=== PATIENT | female | born 1940 | race Caucasian/White ===

== ENCOUNTER 2024-10-10 09:13 | Outpatient (OUT) | payer MEDICARE, SELFPAY ==
--- OUTSIDE RECORDS SUMMARY | 2024-10-10 09:20 | XMS_ITS | Encounter Summary ---
Author Organization [facility] Address [address] [place] [address] Phone Care Team Providers Care Pulling Unit Operator Name Role Phone Farhad Johnson DO Primary Care Provider + Encounter Details Date Type Department Care Team (Late st Contact Info) Description 10/13/2022 Scanned Document [facility] [address] [place] [id number] Scanning, Generic Provider Social History Tobacco Use Types Packs/Day Years Used Date Smoking Tobacco: Never Assessed Comments Unknown Sex and Gender Information Value Date Recorded Sex Assigned at Not on file Legal Sex Female 8:27 PM EST Gender Identity Not on file Sexual Orientation Not on file documented as of this encounter Plan of Treatment Scheduled Orders Name Type Priority Associated Diagnoses Orde r Schedule Ultrasound- OnBase Scan Imaging O rdered: 10/13/2022 documented as of this encounter Visit Diagnoses Not on filedocumented in this encounter Care Teams Pulling Unit Operator Relationship Specialty Start Date End Date Farhad Johnson DO [address] [place] [address] PCP - General Family Medicine 03/04/23 documented as of this encounter
--- OUTSIDE RECORDS SUMMARY | 2024-10-10 09:20 | XMS_ITS | Encounter Summary ---
Author Organization [facility] Address [address] [place] [address] Phone Care Team Providers Care Blower Insulator Name Role Phone Farhad Johnson DO Primary Care Provider + Encounter Details Date Type Department Care Team (Late st Contact Info) Description 10/12/2022 Scanned Document [facility] [address] [place] [id number] Scanning, Generic Provider Social History Tobacco Use Types Packs/Day Years Used Date Smoking Tobacco: Never Assessed Comments Unknown Sex and Gender Information Value Date Recorded Sex Assigned at Not on file Legal Sex Female 8:27 PM EST Gender Identity Not on file Sexual Orientation Not on file documented as of this encounter Plan of Treatment Not on file documented as of this encounter Visit Diagnoses Not on filedocumented in this encounter Care Teams Blower Insulator Relationship Specialty Start Date End Date Farhad Johnson DO [address] [place] [address] PCP - General Family Medicine 03/04/23 documented as of this encounter
--- OUTSIDE RECORDS SUMMARY | 2024-10-10 09:20 | XMS_ITS | Clinical Summary ---
Author Organization [facility] Address [address] [place] [address], [address] [place] [address] Care Team Providers Care Head Sugar Reprocess Operator Name Role Phone Jayjay Macias Primary Care Provider [phone] Social History Tobacco Use Types Packs/Day Years Used Date Smoking Tobacco: Never Assessed Comments Unknown Sex and Gender Information Value Date Recorded Sex Assigned at Not on file Legal Sex Female 9:17 PM EST Gender Identity Not on file Sexual Orientation Not on file Plan of Treatment Not on file Care Teams Head Sugar Reprocess Operator Relationship Specialty Start Date End Date Jayjay Macias [address] [address] PCP - General 03/16/11
--- OUTSIDE RECORDS SUMMARY | 2024-10-10 09:20 | XMS_ITS | Encounter Summary ---
Author Organization [facility] Address [address] [place] [address] Phone Care Team Providers Care Sanitarian Name Role Phone Farhad Johnson DO Primary Care Provider + Encounter Details Date Type Department Care Team ([facility] st Contact Info) Description 02/01/2023 Scanned Document [facility] [address] [place] [id number] Scanning, Generic Provider Social History Tobacco Use Types Packs/Day Years Used Date Smoking Tobacco: Never Assessed Comments Unknown Sex and Gender Information Value Date Recorded Sex Assigned at Not on file Legal Sex Female 8:27 PM EST Gender Identity Not on file Sexual Orientation Not on file documented as of this encounter Plan of Treatment Not on file documented as of this encounter Procedures Procedure Name Priority Date/Time Associated Diagnosis Comments OUTSIDE CARDIOLOGY SCAN 02/01/2023 documented in this encounter Results * OUTSIDE CARDIOLOGY SCAN (02/01/2023) Narrative 02/01/2023 Ordered by an unspecified provider. us Generic Provider Scanning OUTSIDE SCAN Final Result documented in this encounter Visit Diagnoses Not on filedocumented in this encounter Care Teams Sanitarian Relationship Specialty Start Date End Date Farhad Johnson DO [address] [place] [address] PCP - General Family Medicine 03/04/23 documented as of this encounter
--- OUTSIDE RECORDS SUMMARY | 2024-10-10 09:20 | XMS_ITS | Clinical Summary ---
Author Organization [facility] Address [address] [place] [address] Phone Care Team Providers Care Court Operations Clerk Name Role Phone Farhad Johnson DO Primary Care Provider + Allergies No known active allergies Medications gabapentin (Neurontin) 300 mg capsule Take 1 capsule (300 mg) by mouth once daily at bedtime. Active carvedilol (Coreg) 25 mg tablet Take 1 tablet (25 mg) by mouth 2 times a day. 02/10/2023 Active aspirin 81 mg EC tablet Take 1 tablet (81 mg) by mouth once daily. 06/30/2018 Active folic acid/vit B complex and C (DIALYVITE 800 ORAL) Take 1 tablet by mouth once daily. 07/22/2018 Active omeprazole (PriLOSEC) [address] capsule Take 1 capsule (20 mg) by mouth once daily in the morning. Take before meals. 02/27/2023 Active simvastatin (Zocor) 20 mg tablet Take 1 tablet (20 mg) by mouth once daily at bedtime. 11/23/2016 Active cinacalcet (Sensipar) 60 mg tablet Take 1 tablet (60 mg) by mouth once daily. 07/22/2018 Active metoprolol succinate XL (Toprol-XL) 25 mg 24 hr tablet Take 1 tablet (25 mg) by mouth if needed. Active Active Problems Problem Noted Date Diagnosed Date Nonsustained ventricular tachycardia (Multi) 05/2023 Non-ischemic cardiomyopathy (Multi) 03/04/2023 Essential hypertension 03/04/2023 Hemodialysis patient 03/04/2023 BMI 28.0-28.9,adult 03/04/2023 Family History Medical History Relation Name Comments Cancer Father Cancer Sister Relation Name Status Comments Father Sister Social History Tobacco Use Types Packs/Day Years Used Date Smoking Tobacco: Former Cigarettes Smokeless Tobacco: Never Tobacco Cessation:Counseling Given: Not Answered Alcohol Use Standard Drinks/Week Comments Never 0 (1 standard drink = 0.6 oz pur e alcohol) Comments Unknown Sex and Gender Information Value Date Recorded Sex Assigned at Not on file Legal Sex Female 8:27 PM EST Gender Identity Not on file Sexual Orientation Not on file Last Filed Vital Signs Vital Sign Reading Time Taken Comments Blood Pressure 132/68 04/06/2023 9:39 AM EST Pulse 68 03/04/2023 1:19 PM EST Temperature - - Respiratory Rate - - Oxygen Saturation - - Inhaled Oxygen Concentration - - Weight 77.1 kg (170 lb) 04/06/2023 9:39 AM EST Height 165.1 cm (5' 5 ) 04/06/2023 9:39 AM EST Body Mass Index 28.29 04/06/2023 9:39 AM EST Plan of Treatment Health Maintenance Due Date Last Done Comments Lipid Panel 1940 Medicare Annual Wellness Vis it (AWV) 1940 Diabetes Screening 1960 Zoster Vaccines (1 of 2) 1992 Bone Density Scan 11/10/2007 RSV High Risk: (Elderly (60+ ) or Population) (1 - 1-dose 75+ series) 2017 COVID-19 Vaccine ( - 2023-2 5 season) 2023 03/20/2021, 06/05/2020, 05/15/2020 Influenza Vaccine (#1) 2024 9, 04/20/2017, 12/18/2011 DTaP/Tdap/Td Vaccines (3 - T d or Tdap) 10/09/2032 10/09/2022, 11/23/2016 Hepatitis B Vaccines Completed 03/03/2012, 10/07/2011, 06/10/2011 Pneumococcal Vaccine Completed 04/20/2017, 04/20/2017, 04/06/2011 HIB Vaccines Aged Out No longer eligi ble based on patient's age to complete this topic HPV Vaccines Aged Out No longer eligi ble based on patient's age to complete this topic Hepatitis A Vaccines Aged Out No long er eligible based on patient's age to complete this topic IPV Vaccines Aged Out No longer eligi ble based on patient's age to complete this topic Meningococcal Vaccine Aged Out No renuka katharina eligible based on patient's age to complete this topic Rotavirus Vaccines Aged Out No longer eligible based on patient's age to complete this topic Insurance [facility] Member Subscriber Plan / Payer ( fective 2018-Present) Name:Minerva Doan Relation to Subscriber:Self Name:Minerva Doan Payer ID:Not on file Type:Not on file Address: [address] [facility] Member Subscriber Plan / Payer ( fective 2018-Present) Name:Minerva Doan Relation to Subscriber:Self Name:Minerva Doan Payer ID:Not on file Type:Not on file Address: [address] Teams [address] Operations Clerk Relationship Specialty Start Date End Date Farhad Johnson DO [address] [place] [address] PCP - General Family Medicine 03/04/23
--- OUTSIDE RECORDS SUMMARY | 2024-10-10 09:20 | XMS_ITS | Clinical Summary ---
Author Organization [employer] Address [id number] [address] [place] [address] Care Team Providers Care Shirt Ironer Supervisor Name Role Phone No Pcp, No Pcp Primary Care Provider Unavailabl e Social History Tobacco Use Types Packs/Day Years Used Date Smoking Tobacco: Never Assessed Childcare Answer Date Recorded Childcare Unknown 08/10/2018 Employment Answer Date Recorded Employment Unknown 08/10/2018 Purpose - Life Answer Date Recorded Purpose and direction in life Unknown Comments Unknown Sex and Gender Information Value Date Recorded Sex Assigned at Not on file Legal Sex Female 4:48 PM EDT Gender Identity Not on file Sexual Orientation Not on file Plan of Treatment Health Maintenance Due Date Last Done Comments Depression Screening 1954 Tobacco Screening 1952 DTaP,Tdap and Td Vaccines (1 - Tdap) 1961 Zoster (Shingles) Vaccine (1 of 2) 1992 Fall Risk Screening 11/10/2007 Influenza Vaccine 10/30/2024 Medical Devices Not on file Insurance [employer] [employer] [place] [employer] Care Teams Shirt Ironer Supervisor Relationship Specialty Start Date End Date No Pcp, [place] [address] PCP - General Family Medicine 04/21/18
--- OUTSIDE RECORDS SUMMARY | 2024-10-10 09:20 | XMS_ITS | Clinical Summary ---
Author Organization [facility] Address [address] [facility] [place] [address] Care Team Providers Care Manager Hydraulic Name Role Phone Unavailable Primary Care Provider Unavailabl e Social History Tobacco Use Types Packs/Day Years Used Date Smoking Tobacco: Never Assessed Comments Unknown Sex and Gender Information Value Date Recorded Sex Assigned at Not on file Legal Sex Female 6:35 PM EDT Gender Identity Not on file Sexual Orientation Not on file Last Filed Vital Signs Vital Sign Reading Time Taken Comments Blood Pressure 100/77 05/25/2019 12:00 PM EDT Pulse - - Temperature - - Respiratory Rate - - Oxygen Saturation - - Inhaled Oxygen Concentration - - Weight 76.2 kg (168 lb) 07/17/2021 12:00 PM EDT Height 160 cm (5' 3 ) 07/17/2021 12:00 PM EDT Body Mass Index 29.76 07/17/2021 12:00 PM EDT Plan of Treatment Not on file
--- OUTSIDE RECORDS SUMMARY | 2024-10-10 09:20 | XMS_ITS | Encounter Summary ---
Author Organization [facility] Address [address] [place] [address] Phone Care Team Providers Care Pit Boss Name Role Phone Farhad Johnson DO Primary Care Provider + Encounter Details Date Type Department Care Team (Late st Contact Info) Description 10/13/2022 Scanned Document [facility] [address] [place] [address] Conversion, Onbase Social History Tobacco Use Types Packs/Day Years [...] Procedure Name Priority Date/Time Associated Diagnosis Comments ECHOCARDIOGRAM 10/13/2022 documented in this encounter Results * ECHOCARDIOGRAM (10/13/2022) Narrative 10/13/2022 Ordered by an unspecified provider. us Onbase Conversion CV ECHO PROCEDURES Final Resul t documented in this encounter Visit Diagnoses Not on filedocumented in this encounter Care Teams Pit Boss Relationship Specialty Start Date End Date Farhad Johnson DO [address] [place] [address] PCP - General Family Medicine 03/04/23 documented as of this encounter
--- NOTE | 2024-10-10 09:42 | PM.WCHP ---
Wound Care H&P: HPI History of Present Illness Narrative: The patient is an 83-year-old female with history of end-stage renal disease on hemodialysis and neuropathy who presents for routine nail and callus care. The patient has no complaints in regards to her feet at this time, however she did notice a flaky thick callus on the tip of her left third toe. Exam Narrative: Exam Narrative: Derm: Skin is diffusely thin, shiny, atrophic, and dry. There is a callus on the tip of the left third toe with no ulceration at base. Toenails 1 through 10 are thick, mycotic, and elongated. Subungual debris noted beneath the hallux toenails bilaterally. Vascular: DP pulses are 2/4. PT pulses are nonpalpable bilaterally. Capillary refill is brisk to all toes. Feet and toes are slightly cool to the touch. Digital hair is absent. Superficial varicosities are noted on the lower legs and ankles. Neuro: Vibratory sensation absent bilaterally. Protective sensation was tested with a [place] Lauren monofilament and was present in 1/5 areas tested on the right and 1/5 areas tested on the left. Achilles deep tendon reflexes are 1+ bilaterally. MSK: Contractures noted of the lesser toes, but strength is grossly normal in all planes. Range of motion in the ankles and feet are within normal limits bilaterally. Assessment and Plan Assessment and Plan (1) Tinea unguium: (2) Diminished pulses in lower extremity: (3) Nail dystrophy: (4) Disorder of nail due to another disorder: (5) End-stage renal disease (ESRD): (6) Peripheral neuropathy: Plan Routine toenail care performed. A callus on the tip of the left third toe was pared with soft tissue nippers. Follow-up in 3 months or as needed. Acute Procedures Podiatry Nail Debridement Class B Findings Absent posterior tibial pulse: bilateral Advanced trophic changes as evidenced by any three of the following: decreased hair growth, nail changes (thickening) and skin texture (thin or shiny) Class C Findings Claudication: No Temperature changes: Yes Edema: Yes Nail debridement paresthesia (abnormal spontaneous sensations in the feet): No Burning: No Qualifies If: Qualifiers If:: A patient qualifies for nail debridement if they have: 1 class A finding (Q7) 2 class B findings (Q8) OR 1 class B & 2 class C findings in addition to a primary condition (Q9) Nail Procedure Nail Procedure Time out: Yes Nail procedure: other (Toenail debridement toes 1 through 10) Number of affected nails: 10 Location (toes): left and right Procedure successful: Yes Patient tolerated procedure: well and no complications Additional comments: Toenails 1 through 10 were sharply debrided without incident with nail nippers. Callus on the tip of the left third toe was pared using soft tissue nippers. No ulceration noted at the base.
== END 2024-10-10 09:14 | disposition home or self-care (01) ==
LOC: WC 09:18
PROVIDERS: Visit Provider Physician Assistant
DX: B35.1 Tinea unguium (principal); R29.898 Other symptoms and signs involving the musculoskeletal system; L60.8 Other nail disorders; L60.3 Nail dystrophy; N18.6 End stage renal disease; G62.9 Polyneuropathy, unspecified
CPT/HCPCS: 11721

== ENCOUNTER 2025-02-14 14:40 | Outpatient (OUT) | payer MEDICARE, SELFPAY ==
--- NOTE | 2025-02-14 13:22 | PM.WCHP ---
Wound Care H&P: HPI History of Present Illness Narrative: The patient is an 83-year-old female with history of end-stage renal disease on hemodialysis and neuropathy who presents for routine nail and callus care. The patient complains of a painful thick callus on the tip of her left third toe. She also states her toenails are painful from being long. Exam Narrative: Exam Narrative: Derm: Skin is diffusely thin, shiny, atrophic, and dry. There is a callus on the tip of the left third toe with no ulceration at base. Toenails 1 through 10 are thick, mycotic, and elongated. Subungual debris noted beneath the hallux toenails bilaterally. Vascular: DP pulses are 2/4. PT pulses are nonpalpable bilaterally. Capillary refill is brisk to all toes. Feet and toes are slightly cool to the touch. Digital hair is absent. Superficial varicosities are noted on the lower legs and ankles. Neuro: Vibratory sensation absent bilaterally. Protective sensation was tested with a [place] Lauren monofilament and was present in 1/5 areas tested on the right and 1/5 areas tested on the left. Achilles deep tendon reflexes are 1+ bilaterally. MSK: Contractures noted of the lesser toes, but strength is grossly normal in all planes. Range of motion in the ankles and feet are within normal limits bilaterally. Assessment and Plan Assessment and Plan (1) Tinea unguium: (2) Skin callus: (3) Diminished pulses in lower extremity: (4) Nail dystrophy: (5) Disorder of nail due to another disorder: (6) End-stage renal disease (ESRD): (7) Peripheral neuropathy: Plan Routine toenail care performed. A callus on the tip of the left third toe was pared with soft tissue nippers. Follow-up in 3 months or as needed. Acute Procedures Podiatry Nail Debridement Class B Findings Absent posterior tibial pulse: bilateral Advanced trophic changes as evidenced by any three of the following: decreased hair growth, nail changes (thickening) and skin texture (thin or shiny) Class C Findings Claudication: No Temperature changes: Yes Edema: Yes Nail debridement paresthesia (abnormal spontaneous sensations in the feet): No Burning: No Qualifies If: Qualifiers If:: A patient qualifies for nail debridement if they have: 1 class A finding (Q7) 2 class B findings (Q8) OR 1 class B & 2 class C findings in addition to a primary condition (Q9) Nail Procedure Nail Procedure Time out: Yes Nail procedure: other ((1) Toenail debridement toes 1 through 10, (2) callus paring x 1 left 3rd toe) Number of affected nails: 10 Location (toes): left and right Procedure successful: Yes Patient tolerated procedure: well and no complications Additional comments: Toenails 1 through 10 were sharply debrided without incident with nail nippers. Callus on the tip of the left third toe was pared using soft tissue nippers and a ring curette. No ulceration noted at the base. She noted pain relief post procedure.
--- OUTSIDE RECORDS SUMMARY | 2025-02-14 14:44 | XMS_ITS | Clinical Summary ---
Author Organization [facility] Address [address] [facility] [place] [address] Care Team Providers Care Scrub Wheel Operator Name Role Phone Unavailable Primary Care Provider Unavailabl e Social History Tobacco UseTypesPacks/DayYears UsedDateSmoking Tobacco: Never Assessed CommentsUnknownSex and Gender InformationValueDate RecordedSex Assigned at Not on fileLegal MweZxncqt62/15/2023 6:35 PM EDTGender IdentityNot on fileSexual OrientationNot on file Last Filed Vital Signs Vital SignReadingTime TakenCommentsBlood Xgxzbeee205/7703/ 12:00 PM EDT Pulse--Temperature--Respiratory Rate--Oxygen Saturation--Inhaled Oxygen Concentration--Srrbxs18.2 kg (168 lb)07/17/2021 12:00 PM BITAnwxkx045 cm (5' 3 ) 07/17/2021 12:00 PM EDTBody Mass Index29.76007/17/2021 12:00 PM EDT Plan of Treatment Not on file
--- OUTSIDE RECORDS SUMMARY | 2025-02-14 14:44 | XMS_ITS | Clinical Summary ---
Author Organization [employer] Address [id number] [address] [place] [address] Care Team Providers Care Piping Designer Name Role Phone No Pcp, No Pcp Primary Care Provider Unavailabl e Social History Tobacco UseTypesPacks/DayYears UsedDateSmoking Tobacco: Never AssessedChildcare AnswerDate XdojvlevRbbcftblkIzfjwol79/12/2019EmploymentAnswerDate Recorded FktxlmgxxaViidzbg57/12/2019Purpose - LifeAnswerDate RecordedPurpose and direction in iceuDgrnjhh90/11/2021CommentsUnknownSex and Gender InformationValueDate RecordedSex Assigned at BirthNot on fileLegal SexFemale 12/21/2014 4:48 PM EDTGender IdentityNot on fileSexual OrientationNot on file Plan of Treatment Health MaintenanceDue DateLast DoneCommentsDepression Idwputmfh05/11/1955Tobacco [place]61/11/1955DTaP,Tdap and Td Vaccines (1 - Tdap)1961Zoster (Shingles) Vaccine (1 of 2)1992Fall Risk Iuttkqufk87/11/2008RSV ( or age 60+ yrs) (1 - 1-dose 75+ series)2017Influenza Raatinl0110/30/2024 Medical Devices Not on [place] [address] Care Teams Team MemberRelationshipSpecialtyStart DateEnd Date No Pcp, [place] [address] [facility]
--- OUTSIDE RECORDS SUMMARY | 2025-02-14 14:44 | XMS_ITS ---
Author Organization [facility] Address [address] [place] [address] Care Team Providers Care Rn Visiting Name Role Phone Unavailable Unavailable Unavailable Allergies, Adverse Reactions, Alerts This patient has no known allergies or adverse reactions. Problems This patient has no known problems.
--- OUTSIDE RECORDS SUMMARY | 2025-02-14 14:44 | XMS_ITS | Clinical Summary ---
Author Organization [facility] Address [address] [facility], [address] [place] [address] Care Team Providers Care Turn Out Name Role Phone Jayjay Macias Primary Care Provider [phone] Social History Tobacco UseTypesPacks/DayYears UsedDateSmoking Tobacco: Never Assessed CommentsUnknownSex and Gender InformationValueDate RecordedSex Assigned at Not on fileLegal MypZvbhiu30/12/2013 9:17 PM ESTGender IdentityNot on fileSexual OrientationNot on file Plan of Treatment Not on file Care Teams Team MemberRelationshipSpecialtyStart DateEnd Date Jayjay Macias Y [address] [facility] [address] [place] [address] PCP - General03/16/11
--- OUTSIDE RECORDS SUMMARY | 2025-02-14 14:44 | XMS_ITS | Clinical Summary ---
Author Organization [facility] Address [address] [place] [address] Phone Care Team Providers Care Transaction Manager Name Role Phone Farhad Johnson DO Primary Care Provider + Allergies No known active allergies Medications MedicationSigDispense QuantityRefillsLast FilledStart DateEnd DateStatus gabapentin (Neurontin) 300 mg capsule Take 1 capsule (300 mg) by mouth once daily at bedtime.Active carvedilol (Coreg) 25 mg tablet Take 1 tablet (25 mg) by mouth 2 times a day.02/10/2023ctive aspirin 81 mg EC tablet Take 1 tablet (81 mg) by mouth once daily.06/30/2018Active folic acid/vit B complex and C (DIALYVITE 800 ORAL) Take 1 tablet by mouth once daily.07/22/2018Active omeprazole (PriLOSEC) [address] capsule Take 1 capsule (20 mg) by mouth once daily in the morning. Take before meals. 02/27/2023ctive simvastatin (Zocor) 20 mg tablet Take 1 tablet (20 mg) by mouth once daily at bedtime.11/23/2016Active cinacalcet (Sensipar) 60 mg tablet Take 1 tablet (60 mg) by mouth once daily.07/22/2018Active metoprolol succinate XL (Toprol-XL) 25 mg 24 hr tablet Take 1 tablet (25 mg) by mouth if needed.Active Active Problems ProblemNoted DateDiagnosed DateNonsustained ventricular cnwcjlmuinr84/04/2024 Non-ischemic kiwatucvzfkeii37/04/2024Essential obctvmsjsxiv61/04/2024 Hemodialysis sguwvoe0203/04/2023MI 28.0-28.9,adult03/04/2023 Family History Medical HistoryRelationNameCommentsCancerFatherCancerSisterRelationNameStatus CommentsFatherSister Social History Tobacco UseTypesPacks/DayYears UsedDateSmoking Tobacco: FormerCigarettes Smokeless Tobacco: Never Tobacco Cessation:Counseling Given: Not Answered Alcohol UseStandard Drinks/WeekCommentsNever0 (1 standard drink = 0.6 oz pure alcohol)CommentsUnknownSex and Gender InformationValueDate RecordedSex Assigned at BirthNot on fileLegal IamYcatkq59/25/2022 8:27 PM ESTGender Identity Not on fileSexual OrientationNot on file Last Filed Vital Signs Vital SignReadingTime TakenCommentsBlood Gzyykapc417/68004/06/2023 9:39 AM EST Kttbk925703/04/2023 1:19 PM ESTTemperature--Respiratory Rate--Oxygen Saturation-- Inhaled Oxygen Concentration--Gemddr84.1 kg (170 lb)04/06/2023 9:39 AM ESTHeight 165.1 cm (5' 5 )04/06/2023 9:39 AM ESTBody Mass Index28.29004/06/2023 9:39 AM EST Plan of Treatment Health MaintenanceDue DateLast DoneCommentsLipid Panel1942Medicare Annual Wellness Visit (AWV)3Diabetes Exhdefetf90/11/1961Zoster Vaccines (1 of 2)1992Bone Density Scan11/10/2007RSV High Risk: (Elderly (60+) or Population) (1 - 1-dose 75+ series)2017Influenza Vaccine (#1)2024 11/29/2018, 04/20/2017, 12/18/2011COVID-19 Vaccine ( season) 5003/20/2021, 06/05/2020, 1DTaP/Tdap/Td Vaccines (3 - Td or Tdap), 11/23/2016Hepatitis B TndwkmkgOjufetnbw57/03/2013, 10/07/2011, 06/10/2011Pneumococcal WircdwpDouymkdqm99/20/2018, 04/20/2017, 04/06/2011HIB VaccinesAged OutNo longer eligible based on patient's age to complete this topicHPV VaccinesAged OutNo longer eligible based on patient's age to complete this topicHepatitis A VaccinesAged OutNo longer eligible based on patient's age to complete this topicIPV VaccinesAged OutNo longer eligible based on patient's age to complete this topicMeningococcal VaccineAged OutNo longer eligible based on patient's age to complete this topicRotavirus VaccinesAged Out No longer eligible based on patient's age to complete this topic Insurance * Guarantor: Minerva Doan TypeRelation to PatientDate of BirthPhone Billing AddressPersonal/PiwenqZyxj31/11/1941 ([place]) [address] [place] [address] * Guarantor: Minerva Doan TypeRelation to PatientDate of BirthPhone Billing AddressPersonal/SvgmonBvkg69/11/1941 ([place]) [address] [place] [address] Care Teams Team MemberRelationshipSpecialtyStart DateEnd Date Farhad Johnson DO [address] [place] [address] PCP - GeneralFamily Medicine03/04/23
== END 2025-02-14 14:41 | disposition home or self-care (01) ==
LOC: WC 14:41
PROVIDERS: Visit Provider Physician Assistant
DX: B35.1 Tinea unguium (principal); L84 Corns and callosities; R09.89 Other specified symptoms and signs involving the circulatory and respiratory systems; L60.8 Other nail disorders; L60.3 Nail dystrophy; N18.6 End stage renal disease; G62.9 Polyneuropathy, unspecified
CPT/HCPCS: 11721